=== PATIENT | male | born 1980 | race Caucasian/White ===

== ENCOUNTER 2016-09-25 10:26 | Inpatient (IN) | payer MEDICAID, OTHER ==
[~2016-09-25] VITALS: Ht 177.8 cm; Wt 96.7 kg
[2016-09-25 11:15] LABS: Basophils # (auto) 0 uL; Basophils % (auto) 0.3 % (0.0-2.0); DEFINITIVE VIEW TRANSMISSION; Eosinophils # (auto) 0.1 uL; Eosinophils % (auto) 1.2 % (0.0-7.0); Hematocrit 44.1 % (41.0-53.0); Lymphocytes # (auto) 1.8 uL; Mean Corpuscular Hemoglobin 30.6 pg (28.0-32.0); Mean Platelet Volume 7.9 fL (7.4-10.4); Monocytes # (auto) 1.9 uL; Monocytes % (auto) 17.9 % (0.0-12.0); Neutrophils # (auto) 6.8 uL; Neutrophils % (auto) 63.6 % (37.0-80.0); Platelet Count (auto) 306 10^3/uL (140-450); Red Cell Distribution Width 13.4 % (11.6-16.0); White Blood Cell 10.7 10^3/uL (4.4-10.8)
[2016-09-25 11:33] LABS: Albumin 3.2 g/dL (3.4-5.0); Alkaline Phosphatase 71 U/L (45-117); Anion Gap 13 (5-15); Aspartate Aminotransferase 13 U/L (15-37); BUN/Creatinine Ratio 11.8; Bilirubin, Total 0.3 mg/dL (0.2-1.0); Blood Urea Nitrogen 11 mg/dL (7-18); Calcium 8.9 mg/dL (8.5-10.1); Carbon Dioxide 23 mmol/L (21-32); Chloride 100 mmol/L (98-107); GFR African American 118 mL/min; GFR Non-African American 98 mL/min; Glucose 120 mg/dL (74-106); Magnesium 2.5 mg/dL (1.6-2.6); Potassium 3.2 mmol/L (3.5-5.1); Sodium 136 mmol/L (136-145); Total Protein 7.2 g/dL (6.4-8.2)
[2016-09-25 13:40] LABS: INR 1.06 (0.9-1.15); Partial Thromboplastin Time 28.9 sec (22.64-33.71); Prothrombin Time 11.4 sec (9.37-12.3)
[2016-09-25 16:23] LABS: Urine Bilirubin Negative (Negative); Urine Blood TRACE /uL (Negative); Urine Color Yellow (Yellow); Urine Glucose Normal (Normal); Urine Nitrite Negative (Negative); Urine RBC <1 /hpf (0 - 3); Urine Urobilinogen Normal (Negative)
[2016-09-25 16:24] LABS: Urine Ketone 1+ (Negative)
[2016-09-25] MEDS ORDERED: SODIUM CHLORIDE 0.9% 1,000 ML IVB ONE (17:04)
[2016-09-25] MEDS ORDERED: cefTRIAXone 1GM/50ML D5W 50 ML IV ONE (17:15)
[2016-09-25] MEDS ORDERED: metroNIDAZOLE 500MG/100ML 100 ML IV ONE (17:15)
[2016-09-25] MEDS ORDERED: MORPHINE SULF INJ 2 MG/ML SYRINGE 1ML IV PRN (18:00)
[2016-09-25] MEDS ORDERED: LORazepam 0.5 MG TAB PO PRN (18:00)
[2016-09-25] MEDS ORDERED: NITROGLYCERIN 0.4 MG SL TAB SL PRN (18:00)
[2016-09-25] MEDS ORDERED: HYDROcodone-ACET 5/325MG TAB PO PRN (18:00)
[2016-09-25] MEDS ORDERED: ACETAMINOPHEN 500 MG TAB PO PRN (18:00)
[2016-09-25] MEDS ORDERED: PROMETHAZINE HCL 25 MG/ML 1ML IV PRN (18:00)
[2016-09-25] MEDS ORDERED: FAMOTIDINE (10MG/ML) 2ML VL IV SCH (18:00)
[2016-09-25] MEDS ORDERED: LEVOFLOXACIN 500MG 100 ML IV ONE (18:30)
[2016-09-25] MEDS: SOD CHL 0.9%/ KCL 20MEQ 1,000 ML IV SCH ×2 (18:41→20:15)
[2016-09-25] MEDS ORDERED: PANTOPRAZOLE 40 MG TAB PO ONE (19:45)
[2016-09-25 20:00] VITALS: BP 136/66
[2016-09-25] MEDS: MORPHINE SULF INJ 2 MG/ML SYRINGE 1ML IV PRN (20:14)
[2016-09-25 21:20] VITALS: BP 136/66
[2016-09-25 22:27] LABS: Hematocrit 42.4 % (41.0-53.0); Hemoglobin 14.3 g/dL (13.5-17.5)
[2016-09-25] MEDS: metroNIDAZOLE 500MG/100ML 100 ML IV SCH (23:44)
[2016-09-26] MEDS: SOD CHL 0.9%/ KCL 20MEQ 1,000 ML IV SCH ×6 (04:18→23:09)
[2016-09-26] MEDS: metroNIDAZOLE 500MG/100ML 100 ML IV SCH ×3 (05:37→17:32)
[2016-09-26 05:46] VITALS: BP 101/45
[2016-09-26 05:59] LABS: Basophils # (auto) 0 uL; Basophils % (auto) 0.4 % (0.0-2.0); Eosinophils # (auto) 0.2 uL; Eosinophils % (auto) 2.9 % (0.0-7.0); Hematocrit 39.6 % (41.0-53.0); Hemoglobin 13.3 g/dL (13.5-17.5); Lymphocytes # (auto) 2.3 uL; Lymphocytes % (auto) 27.9 % (10.0-50.0); Mean Corpuscular Hemoglobin 30.4 pg (28.0-32.0); Mean Corpuscular Hgb Conc. 33.6 g/dL (32.0-36.0); Mean Corpuscular Volume 90.4 fL (80.0-100.0); Mean Platelet Volume 7.9 fL (7.4-10.4); Monocytes # (auto) 1.4 uL; Monocytes % (auto) 16.5 % (0.0-12.0); Neutrophils # (auto) 4.4 uL; Neutrophils % (auto) 52.3 % (37.0-80.0); Platelet Count (auto) 290 10^3/uL (140-450); Red Cell Distribution Width 13.6 % (11.6-16.0); White Blood Cell 8.4 10^3/uL (4.4-10.8)
[2016-09-26 06:38] LABS: Albumin 2.6 g/dL (3.4-5.0); BUN/Creatinine Ratio 10.9; Bilirubin, Total 0.3 mg/dL (0.2-1.0); Calcium 8.1 mg/dL (8.5-10.1); Potassium 3.1 mmol/L (3.5-5.1)
[2016-09-26 08:52] VITALS: BP 120/64
[2016-09-26] MEDS ORDERED: POTASSIUM CHL 20MEQ/100ML 100 ML IV SCH ×2 (09:45→12:00)
[2016-09-26] MEDS ORDERED: PANTOPRAZOLE 40 MG TAB PO SCH (10:00)
[2016-09-26] MEDS ORDERED: LEVOFLOXACIN 500MG 100 ML IV SCH (10:00)
[2016-09-26] MEDS: POTASSIUM CHLORIDE 20 MEQ, LIDOCAINE 1% (LOCAL ANESTH.) 2 ML in SODIUM CHL 0.9% 100 ML IV SCH ×2 (10:51→12:46)
[2016-09-26] MEDS ORDERED: PANTOPRAZOLE SODIUM 40 MG/10 ML VIAL IV ONE (11:00)
[2016-09-26] MEDS: MORPHINE SULF INJ 2 MG/ML SYRINGE 1ML IV PRN ×2 (11:04→23:03)
[2016-09-26] MEDS ORDERED: POTASSIUM CHLORIDE 20 MEQ, LIDOCAINE 1% (LOCAL ANESTH.) 2 ML in SODIUM CHL 0.9% 100 ML IV SCH (12:00)
[2016-09-26 12:47] VITALS: BP 123/68
[2016-09-26] MEDS ORDERED: GOLYTELY 4L KIT PO ONE (13:00)
[2016-09-26 17:00] VITALS: BP 132/72
[2016-09-26 20:00] VITALS: BP 129/83
[2016-09-26 22:00] VITALS: BP 129/83
[2016-09-27 05:30] VITALS: BP 117/45
[2016-09-27] MEDS: metroNIDAZOLE 500MG/100ML 100 ML IV SCH ×4 (05:30→18:04)
[2016-09-27 06:30] LABS: Basophils # (auto) 0.1 uL; Basophils % (auto) 0.8 % (0.0-2.0); Eosinophils # (auto) 0.3 uL; Eosinophils % (auto) 3.5 % (0.0-7.0); Hematocrit 36.9 % (41.0-53.0); Hemoglobin 12.6 g/dL (13.5-17.5); Lymphocytes # (auto) 3.3 uL; Lymphocytes % (auto) 42.1 % (10.0-50.0); Mean Corpuscular Hemoglobin 30.8 pg (28.0-32.0); Mean Corpuscular Volume 90.3 fL (80.0-100.0); Mean Platelet Volume 7.7 fL (7.4-10.4); Monocytes % (auto) 12.2 % (0.0-12.0); Neutrophils # (auto) 3.3 uL; Neutrophils % (auto) 41.4 % (37.0-80.0); Platelet Count (auto) 287 10^3/uL (140-450); White Blood Cell 7.9 10^3/uL (4.4-10.8)
[2016-09-27 06:49] LABS: Albumin 2.4 g/dL (3.4-5.0); BUN/Creatinine Ratio 7.3; Bilirubin, Total 0.2 mg/dL (0.2-1.0); Calcium 7.9 mg/dL (8.5-10.1); Potassium 3.5 mmol/L (3.5-5.1); Total Protein 5.3 g/dL (6.4-8.2)
[2016-09-27] MEDS ORDERED: FLUMAZENIL 0.1 MG/ML INJ 10ML MDV IV ONE (08:12)
[2016-09-27] MEDS ORDERED: NALOXONE HCL 0.4 MG/ML VIAL ONE (08:12)
[2016-09-27] MEDS ORDERED: SODIUM CHLORIDE LOCK 10 ML ONE (08:12)
[2016-09-27] MEDS ORDERED: diphenhdrAMINE HCL 50 MG/1 ML VL ONE (08:13)
[2016-09-27 08:51] VITALS: BP 119/51
[2016-09-27] MEDS ORDERED: MIDAZOLAM HCL 5 MG/ML-1ML VIAL ONE ×2 (08:53→09:15)
[2016-09-27] MEDS: MIDAZOLAM HCL 5 MG/ML-1ML VIAL ONE ×4 (09:07→09:19)
[2016-09-27] MEDS: fentaNYL CITRATE 100 MCG/2 ML VL ONE ×4 (09:07→09:19)
[2016-09-27] MEDS ORDERED: PANTOPRAZOLE SODIUM 40 MG/10 ML VIAL IV SCH (10:00)
[2016-09-27] MEDS: SOD CHL 0.9%/ KCL 20MEQ 1,000 ML IV SCH ×2 (11:40→14:01)
[2016-09-27 13:00] VITALS: BP 109/54
[2016-09-27 17:00] VITALS: BP 108/55
[2016-09-27] MEDS: TEMAZEPAM 15 MG CAP PO PRN (20:36)
[2016-09-27 22:00] VITALS: BP 124/63
[2016-09-28] VITALS (7 sets, daily range): BP systolic 125–150; BP diastolic 72–90
[2016-09-28] MEDS: metroNIDAZOLE 500MG/100ML 100 ML IV SCH ×5 (00:09→23:54)
[2016-09-28 05:53] LABS: Basophils # (auto) 0.1 uL; Basophils % (auto) 0.7 % (0.0-2.0); Eosinophils # (auto) 0.3 uL; Eosinophils % (auto) 2.9 % (0.0-7.0); Lymphocytes # (auto) 3.9 uL; Lymphocytes % (auto) 34.1 % (10.0-50.0); Mean Corpuscular Hemoglobin 30.5 pg (28.0-32.0); Mean Corpuscular Hgb Conc. 34.2 g/dL (32.0-36.0); Mean Corpuscular Volume 89.4 fL (80.0-100.0); Mean Platelet Volume 8.9 fL (7.4-10.4); Monocytes # (auto) 1.1 uL; Monocytes % (auto) 9.6 % (0.0-12.0); Neutrophils % (auto) 52.7 % (37.0-80.0); Platelet Count (auto) 217 10^3/uL (140-450); Red Cell Distribution Width 14.1 % (11.6-16.0); White Blood Cell 11.4 10^3/uL (4.4-10.8)
[2016-09-28] MEDS: SOD CHL 0.9%/ KCL 20MEQ 1,000 ML IV SCH ×3 (06:19→21:13)
[2016-09-28 06:36] LABS: Albumin 2.7 g/dL (3.4-5.0); BUN/Creatinine Ratio 10.8; Bilirubin, Total 0.4 mg/dL (0.2-1.0); Potassium 3.7 mmol/L (3.5-5.1); Total Protein 5.8 g/dL (6.4-8.2)
[2016-09-28] MEDS: SULFASALAZINE 500 MG TAB PO SCH ×3 (12:43→21:13)
[2016-09-28] MEDS: TEMAZEPAM 15 MG CAP PO PRN (23:58)
[2016-09-29] VITALS (7 sets, daily range): BP systolic 114–147; BP diastolic 53–90
[2016-09-29] MEDS: SOD CHL 0.9%/ KCL 20MEQ 1,000 ML IV SCH ×3 (05:23→21:04)
[2016-09-29 05:32] LABS: Basophils # (auto) 0.1 uL; Basophils % (auto) 0.5 % (0.0-2.0); Eosinophils # (auto) 0.4 uL; Eosinophils % (auto) 2.7 % (0.0-7.0); Hematocrit 40.7 % (41.0-53.0); Hemoglobin 13.8 g/dL (13.5-17.5); Lymphocytes # (auto) 4.5 uL; Lymphocytes % (auto) 33.5 % (10.0-50.0); Mean Corpuscular Hemoglobin 30.5 pg (28.0-32.0); Mean Corpuscular Hgb Conc. 33.8 g/dL (32.0-36.0); Mean Corpuscular Volume 90.2 fL (80.0-100.0); Mean Platelet Volume 7.9 fL (7.4-10.4); Monocytes # (auto) 1.1 uL; Monocytes % (auto) 8.6 % (0.0-12.0); Neutrophils # (auto) 7.3 uL; Neutrophils % (auto) 54.7 % (37.0-80.0); Platelet Count (auto) 369 10^3/uL (140-450); Red Cell Distribution Width 13.8 % (11.6-16.0); White Blood Cell 13.3 10^3/uL (4.4-10.8)
[2016-09-29] MEDS: metroNIDAZOLE 500MG/100ML 100 ML IV SCH ×4 (05:43→23:23)
[2016-09-29 05:54] LABS: BUN/Creatinine Ratio 16.5; Calcium 8.3 mg/dL (8.5-10.1); Potassium 3.4 mmol/L (3.5-5.1)
[2016-09-29] MEDS: SULFASALAZINE 500 MG TAB PO SCH ×4 (08:42→21:04)
[2016-09-29] MEDS ORDERED: POTASSIUM CHLORIDE 40 MEQ, LIDOCAINE 1% (LOCAL ANESTH.) 4 ML in SODIUM CHL 0.9% 250 ML IV ONE (09:00)
[2016-09-29 10:52] LABS: Urine RBC None Seen /hpf (0 - 3)
[2016-09-29 11:07] LABS: Urine Bilirubin Negative (Negative); Urine Blood Negative /uL (Negative); Urine Color Yellow (Yellow); Urine Glucose Normal (Normal); Urine Ketone Negative (Negative); Urine Nitrite Negative (Negative); Urine Urobilinogen Normal (Negative); Urine pH 5.5 (5.0-8.0)
[2016-09-29] MEDS: TEMAZEPAM 15 MG CAP PO PRN (22:25)
[2016-09-30 04:58] VITALS: BP 118/68
[2016-09-30] MEDS: metroNIDAZOLE 500MG/100ML 100 ML IV SCH (05:40)
[2016-09-30] MEDS: SOD CHL 0.9%/ KCL 20MEQ 1,000 ML IV SCH (05:41)
[2016-09-30 06:32] LABS: Basophils # (auto) 0 uL; Basophils % (auto) 0.2 % (0.0-2.0); Eosinophils # (auto) 0.4 uL; Eosinophils % (auto) 2.7 % (0.0-7.0); Hematocrit 42.3 % (41.0-53.0); Hemoglobin 14.4 g/dL (13.5-17.5); Lymphocytes # (auto) 4.8 uL; Lymphocytes % (auto) 31.6 % (10.0-50.0); Mean Corpuscular Hemoglobin 30.5 pg (28.0-32.0); Mean Corpuscular Hgb Conc. 34.1 g/dL (32.0-36.0); Mean Corpuscular Volume 89.4 fL (80.0-100.0); Mean Platelet Volume 7.6 fL (7.4-10.4); Monocytes # (auto) 1.4 uL; Neutrophils # (auto) 8.6 uL; Neutrophils % (auto) 56.5 % (37.0-80.0); Platelet Count (auto) 396 10^3/uL (140-450); Red Cell Distribution Width 13.9 % (11.6-16.0); White Blood Cell 15.1 10^3/uL (4.4-10.8)
[2016-09-30 06:58] LABS: Albumin 3.1 g/dL (3.4-5.0); Calcium 8.5 mg/dL (8.5-10.1)
[2016-09-30 07:01] LABS: BUN/Creatinine Ratio 13.8
[2016-09-30 07:09] LABS: Bilirubin, Total 0.2 mg/dL (0.2-1.0); Total Protein 6.1 g/dL (6.4-8.2)
[2016-09-30 08:22] VITALS: BP 118/68
[2016-09-30] MEDS: SULFASALAZINE 500 MG TAB PO SCH (09:01)
[2016-09-30 09:53] VITALS: BP 120/63
[2016-09-30 10:56] VITALS: BP 120/63
== END 2016-09-30 10:20 | disposition home or self-care (01) | DRG 249 ==
LOC: EDSEX 10:26 → ER 10:29 → TELE 10:30 → TELE-CENTR 20:03
PROVIDERS: ADMIT Plastic Surgery; ATTEND Internal Medicine
PROC: 0DBE8ZX Excision of Large Intestine, Via Natural or Artificial Opening Endoscopic, Diagnostic (ICD-10-PCS; principal; 2016-09-27 09:05)
DX: K52.9 Noninfective gastroenteritis and colitis, unspecified (principal); K92.2 Gastrointestinal hemorrhage, unspecified; I10 Essential (primary) hypertension; K40.20 Bilateral inguinal hernia, without obstruction or gangrene, not specified as recurrent; G25.81 Restless legs syndrome; F17.210 Nicotine dependence, cigarettes, uncomplicated; Z82.49 Family history of ischemic heart disease and other diseases of the circulatory system; Z83.3 Family history of diabetes mellitus; Z87.11 Personal history of peptic ulcer disease; Z88.0 Allergy status to penicillin
CPT/HCPCS: 36415; 45380; 71010; 71020; 74176; 80048; 80053; 81001; 82378; 82962; 83735; 84484; 85014; 85018; 85025; 85610; 85652; 85730; 86141; 86850; 86900; 86901; 87045; 87493; 87899; 94761; 96365; 96375; C9113; J0696; J1956; J2001; J2250; J3490